=== PATIENT | male | born 1990 | race Caucasian/White ===

== ENCOUNTER 2019-03-11 21:51 | Observation (INO) ==
[2019-03-11 22:17] LABS: Basophils % 0.4 %; Eosinophils # 0.2 K/mcL (0.0-0.6); Eosinophils % 2.9 %; Hematocrit 39.2 % (37.5-50.1); Hemoglobin 13.9 g/dL (12.9-16.9); Immature Granulocytes % 0.1 % (0-4); Lymphocytes # 2.4 K/mcL (0.6-4.6); Lymphocytes % 34.9 %; Mean Corpuscular HGB Conc 35.5 g/dL (31.6-35.5); Mean Corpuscular Hemoglobin 28.7 pg (28.0-33.3); Mean Corpuscular Volume 80.8 fL (83.0-100.0); Mean Platelet Volume 8.4 fL (9.4-12.4); Monocytes # 0.4 K/mcL (0.0-1.3); Monocytes % 5.4 %; Neutrophils # 3.9 K/mcL (1.6-8.9); Platelet Count 380 K/mcL (140-400); Red Blood Count 4.85 M/mcL (4.19-5.50); Red Cell Distribution Width 13.6 % (11.5-14.5); Segmented Neutrophils % 56.3 %
[2019-03-11 22:18] LABS: White Blood Count 6.9 K/mcL (4.3-11.1)
[2019-03-11 22:24] LABS: Bilirubin,Urine Negative (Negative); Blood,Urine Negative (Negative); Clarity,Urine Cloudy (Clear); Color,Urine Yellow (Yellow); Glucose,Urine (UA) Normal (Normal); Ketones,Urine Negative (Negative); Leukocyte Esterase,Urine Negative (Negative); Nitrite,Urine Negative (Negative); PH,Urine 6.5 pH Units (5.0-8.0); Protein,Urine Negative (Neg-Trace); Specific Gravity,Urine 1.028 (1.010-1.025); Urobilinogen,Urine Normal (Normal)
[2019-03-11 22:27] LABS: Bacteria,Urine None Seen per hpf (None-Few); Hyaline Casts,Urine None Seen per lpf (None-Few); Squamous Epithelial Cell,Urine Few per lpf (None-Few); WBC,Urine 0-3 per hpf (0-3)
[2019-03-11 22:37] LABS: Acetaminophen < 10 mcg/mL (10-20); BUN/Creatinine Ratio 23 (6-26); Blood Urea Nitrogen 15 mg/dL (6-20); Calcium 9.4 mg/dL (8.6-10.3); Carbon Dioxide 25 mEq/L (23-29); Chloride 104 mEq/L (98-107); Ethanol < 10 mg/dL (Less than 10); Glucose 105 mg/dL (70-105); Osmolality,Calculated 285 (280-300); Potassium 3.5 mEq/L (3.5-5.1); Salicylate < 2.5 mg/dL (15.0-30.0); Sodium 137 mEq/L (136-145); eGFR For African Americans > 60 (> 60); eGFR For Non-African Americans > 60 (> 60)
[2019-03-11 22:58] LABS: Amphetamine Screen,Urine Positive ng/mL (Cutoff=1000); Barbiturate Screen,Urine Negative ng/mL (Cutoff=200); Benzodiazepines Screen,Urine Positive ng/mL (Cutoff=200); Cannabinoid Screen,Urine Positive ng/mL (Cutoff = 50); Cocaine Screen,Urine Positive ng/mL (Cutoff= 300); Opiate Screen,Urine Negative ng/mL (Cutoff=300); Phencyclidine Screen,Urine Negative ng/mL (Cutoff=25)
[2019-03-12] MEDS ORDERED: hydrOXYzine pamoate 25 MG CAPSULE PO PRN (01:08)
[2019-03-12] MEDS ORDERED: Mag Hydrox/Al Hydrox/Simeth 30 ML UDC PO PRN (01:08)
[2019-03-12] MEDS ORDERED: *HR* LORazepam 2 MG/ML VIAL IM PRN (01:08)
[2019-03-12] MEDS ORDERED: traZODone 50 MG TABLET PO PRN (01:08)
[2019-03-12] MEDS ORDERED: *HR* LORazepam 1 MG TABLET PO PRN (01:08)
[2019-03-12] MEDS ORDERED: Haloperidol Lactate 5 MG/ML VIAL IM PRN (01:08)
[2019-03-12] MEDS ORDERED: Acetaminophen 325 MG TABLET PO PRN (01:08)
[2019-03-12 01:23] VITALS: BP 116/75
[2019-03-12] MEDS ORDERED: Nicotine 21 MG PATCH.TD24 TD SCH (09:00)
[2019-03-12] MEDS ORDERED: METHADONE PO SCH (09:00)
== END 2019-03-12 10:40 | disposition home or self-care (01) ==
LOC: EMEROOARM 21:51 → INTOOBSV 03-12 01:04 → 1ANU 03-12 01:04
PROVIDERS: ADMIT Psychiatry & Neurology Psychiatry; ATTEND Psychiatry & Neurology Psychiatry

== ENCOUNTER 2019-07-05 17:19 | Observation (INO) ==
[2019-07-05] MEDS ORDERED: Tdap (Boostrix) Vaccine 0.5 ML SYRINGE IM ONE (17:32)
[2019-07-05 17:51] LABS: Bilirubin,Urine Small (Negative); Blood,Urine Negative (Negative); Clarity,Urine Clear (Clear); Color,Urine Dark Yellow (Yellow); Glucose,Urine (UA) Normal (Normal); Ketones,Urine Trace mg/dL (Negative); Leukocyte Esterase,Urine Negative (Negative); Nitrite,Urine Negative (Negative); PH,Urine 5.5 pH Units (5.0-8.0); Protein,Urine Negative (Neg-Trace); Specific Gravity,Urine 1.029 (1.010-1.025); Urobilinogen,Urine Normal (Normal)
[2019-07-05 18:00] LABS: Amphetamine Screen,Urine Positive ng/mL (Cutoff=1000); Barbiturate Screen,Urine Negative ng/mL (Cutoff=200); Benzodiazepines Screen,Urine Negative ng/mL (Cutoff=200); Cannabinoid Screen,Urine Positive ng/mL (Cutoff = 50); Cocaine Screen,Urine Negative ng/mL (Cutoff= 300); Opiate Screen,Urine Negative ng/mL (Cutoff=300); Phencyclidine Screen,Urine Negative ng/mL (Cutoff=25)
[2019-07-05 18:22] LABS: Basophils % 0.2 %; Eosinophils # 0.4 K/mcL (0.0-0.6); Eosinophils % 4.4 %; Hematocrit 41.5 % (37.5-50.1); Hemoglobin 13.7 g/dL (12.9-16.9); Immature Granulocytes % 0.2 % (0-4); Lymphocytes # 1.6 K/mcL (0.6-4.6); Lymphocytes % 16.8 %; Mean Corpuscular Hemoglobin 27.7 pg (28.0-33.3); Mean Platelet Volume 9.3 fL (9.4-12.4); Monocytes # 0.4 K/mcL (0.0-1.3); Monocytes % 4.2 %; Platelet Count 260 K/mcL (140-400); Red Blood Count 4.94 M/mcL (4.19-5.50); Red Cell Distribution Width 13.6 % (11.5-14.5); Segmented Neutrophils % 74.2 %; White Blood Count 9.4 K/mcL (4.3-11.1)
[2019-07-05 18:42] LABS: Acetaminophen < 10 mcg/mL (10-20); BUN/Creatinine Ratio 21 (6-26); Blood Urea Nitrogen 16 mg/dL (6-20); Calcium 9.9 mg/dL (8.6-10.3); Carbon Dioxide 25 mEq/L (23-29); Chloride 106 mEq/L (98-107); Ethanol < 10 mg/dL (Less than 10); Glucose 88 mg/dL (70-105); Osmolality,Calculated 289 (280-300); Potassium 3.9 mEq/L (3.5-5.1); Salicylate < 2.5 mg/dL (15.0-30.0); Sodium 139 mEq/L (136-145); eGFR For African Americans > 60 (> 60); eGFR For Non-African Americans > 60 (> 60)
[2019-07-05] MEDS ORDERED: Mag Hydrox/Al Hydrox/Simeth 30 ML UDC PO PRN (20:20)
[2019-07-05] MEDS ORDERED: *HR* LORazepam 2 MG/ML VIAL IM PRN (20:20)
[2019-07-05] MEDS ORDERED: *HR* LORazepam 1 MG TABLET PO PRN (20:20)
[2019-07-05] MEDS ORDERED: QUEtiapine Fumarate 25 MG TABLET PO PRN ×2 (20:20→21:00)
[2019-07-05] MEDS ORDERED: Acetaminophen 325 MG TABLET PO PRN (20:20)
[2019-07-05] MEDS ORDERED: MOM Conc 10 ML UD.LIQ PO PRN (20:20)
[2019-07-05] MEDS ORDERED: Haloperidol Lactate 5 MG/ML VIAL IM PRN (20:20)
[2019-07-05] MEDS ORDERED: haloperidoL 5 MG TABLET PO PRN (20:20)
[2019-07-05] MEDS ORDERED: hydrOXYzine pamoate 25 MG CAPSULE PO PRN (21:00)
[2019-07-06] MEDS ORDERED: Nicotine 21 MG PATCH.TD24 TD SCH (09:00)
[2019-07-06 09:39] VITALS: BP 100/52
== END 2019-07-06 09:42 | disposition home or self-care (01) ==
LOC: EMEROOARM 17:19 → 1ANU 17:19
PROVIDERS: ADMIT Psychiatry & Neurology Psychiatry; ATTEND Psychiatry & Neurology Psychiatry

== ENCOUNTER 2021-07-01 05:46 | Observation (INO) ==
[2021-07-01] MEDS ORDERED: Sulfamethoxazole/Trimeth DS 1 EACH TABLET PO ONE (06:36)
[2021-07-01 07:40] LABS: Bilirubin,Urine Negative (Negative); Blood,Urine Negative (Negative); Clarity,Urine Clear (Clear); Color,Urine Yellow (Yellow); Glucose,Urine (UA) Normal (Normal); Ketones,Urine 40 mg/dL (Negative); Leukocyte Esterase,Urine Negative (Negative); Mucus,Urine Many per lpf (None-Few); Nitrite,Urine Negative (Negative); Protein,Urine 50 mg/dL (Neg-Trace); RBC,Urine 0-3 per hpf (0-3); Specific Gravity,Urine > 1.030 (1.010-1.025); WBC,Urine 0-3 per hpf (0-3)
[2021-07-01 07:52] LABS: Amphetamine Screen,Urine Positive ng/mL (Cutoff=1000); Barbiturate Screen,Urine Negative ng/mL (Cutoff=200)
[2021-07-01 07:55] LABS: Benzodiazepines Screen,Urine Negative ng/mL (Cutoff=300); Cannabinoid Screen,Urine Positive ng/mL (Cutoff = 50); Cocaine Screen,Urine Negative ng/mL (Cutoff= 300); Opiate Screen,Urine Negative ng/mL (Cutoff=300); Phencyclidine Screen,Urine Negative ng/mL (Cutoff=25)
[2021-07-01 08:00] LABS: Basophils % 0.6 %; Eosinophils # 0.1 K/mcL (0.0-0.6); Eosinophils % 1.9 %; Hematocrit 44.5 % (37.5-50.1); Hemoglobin 15.2 g/dL (12.9-16.9); Lymphocytes # 3.1 K/mcL (0.6-4.6); Lymphocytes % 46.2 %; Mean Corpuscular HGB Conc 34.2 g/dL (31.6-35.5); Mean Corpuscular Hemoglobin 27.4 pg (28.0-33.3); Mean Corpuscular Volume 80.2 fL (83.0-100.0); Mean Platelet Volume 9.4 fL (9.4-12.4); Monocytes # 0.5 K/mcL (0.0-1.3); Monocytes % 6.7 %; Platelet Count 249 K/mcL (140-400); Red Blood Count 5.55 M/mcL (4.19-5.50); Red Cell Distribution Width 12.6 % (11.5-14.5); Segmented Neutrophils % 44.6 %; White Blood Count 6.7 K/mcL (4.3-11.1)
[2021-07-01 08:15] LABS: Acetaminophen < 10 mcg/mL (10-20); BUN/Creatinine Ratio 25 (6-26); Blood Urea Nitrogen 20 mg/dL (6-20); Calcium 9.8 mg/dL (8.6-10.3); Carbon Dioxide 25 mEq/L (23-29); Chloride 102 mEq/L (98-107); Ethanol < 10 mg/dL (Less than 10); Glucose 96 mg/dL (70-105); Osmolality,Calculated 284 (280-300); Potassium 3.4 mEq/L (3.5-5.1); Salicylate < 2.5 mg/dL (15.0-30.0); Sodium 136 mEq/L (136-145); eGFR For African Americans > 60 (> 60); eGFR For Non-African Americans > 60 (> 60)
[2021-07-01 09:14] LABS: Estimated Average Glucose 114 mg/dl; Hemoglobin A1C 5.6 %
[2021-07-01] MEDS ORDERED: *HR* LORazepam 2 MG/ML VIAL IM ONE ×2 (10:40→20:07)
[2021-07-01] MEDS ORDERED: Haloperidol Lactate 5 MG/ML VIAL IM ONE ×2 (10:40→20:07)
[2021-07-02] MEDS ORDERED: Ondansetron 4 MG/2 ML VIAL IVP PRN (01:07)
[2021-07-02] MEDS ORDERED: Naloxone 0.4 MG/ML INJ IVP PRN (01:07)
[2021-07-02 03:09] LABS: Hematocrit 43.2 % (37.5-50.1); Hemoglobin 14.8 g/dL (12.9-16.9); Mean Corpuscular HGB Conc 34.3 g/dL (31.6-35.5); Mean Corpuscular Hemoglobin 27.6 pg (28.0-33.3); Mean Corpuscular Volume 80.4 fL (83.0-100.0); Mean Platelet Volume 9.8 fL (9.4-12.4); Platelet Count 210 K/mcL (140-400); Red Blood Count 5.37 M/mcL (4.19-5.50); Red Cell Distribution Width 12.5 % (11.5-14.5); White Blood Count 6.7 K/mcL (4.3-11.1)
[2021-07-02] MEDS: 0.9 % Sodium Chloride 1,000 ML IVC SCH ×2 (03:23→14:47)
[2021-07-02 03:33] LABS: BUN/Creatinine Ratio 25 (6-26); Blood Urea Nitrogen 20 mg/dL (6-20); Calcium 9.4 mg/dL (8.6-10.3); Carbon Dioxide 25 mEq/L (23-29); Chloride 103 mEq/L (98-107); Chol/HDL Ratio 3.7 (0-4.9); Cholesterol 146 mg/dL (< 200); Glucose 86 mg/dL (70-105); HDL Cholesterol 39 mg/dL (40-59); LDL Cholesterol,Calculated 97 mg/dL (< 100); Magnesium 2.1 mg/dL (1.6-2.6); Osmolality,Calculated 286 (280-300); Potassium 3.3 mEq/L (3.5-5.1); Sodium 137 mEq/L (136-145); Triglycerides 50 mg/dL (< 150); Troponin I < 0.03 ng/mL (< 0.04); eGFR For African Americans > 60 (> 60); eGFR For Non-African Americans > 60 (> 60)
[2021-07-02] MEDS ORDERED: Haloperidol Lactate 5 MG/ML VIAL IM ONE (04:24)
[2021-07-02] MEDS ORDERED: *HR* LORazepam 2 MG/ML VIAL IM ONE (04:25)
[2021-07-02] MEDS: cefTRIAXone 1,000 MG in 0.9 % Sodium Chloride 10 ML IVP SCH ×2 (06:42→17:11)
[2021-07-02] MEDS ORDERED: Haloperidol Lactate 5 MG/ML VIAL IVP STA (09:22)
[2021-07-02] MEDS ORDERED: Haloperidol Lactate 5 MG/ML VIAL IVP PRN (10:11)
[2021-07-02] MEDS: Haloperidol Lactate 5 MG/ML VIAL IM PRN ×2 (14:47→21:12)
[2021-07-03 06:03] LABS: Hematocrit 40.2 % (37.5-50.1); Hemoglobin 13.5 g/dL (12.9-16.9); Mean Corpuscular HGB Conc 33.6 g/dL (31.6-35.5); Mean Corpuscular Hemoglobin 27.1 pg (28.0-33.3); Mean Corpuscular Volume 80.6 fL (83.0-100.0); Mean Platelet Volume 9.9 fL (9.4-12.4); Platelet Count 212 K/mcL (140-400); Red Blood Count 4.99 M/mcL (4.19-5.50); Red Cell Distribution Width 12.4 % (11.5-14.5); White Blood Count 6.8 K/mcL (4.3-11.1)
[2021-07-03 06:16] LABS: BUN/Creatinine Ratio 19 (6-26); Blood Urea Nitrogen 15 mg/dL (6-20); Carbon Dioxide 25 mEq/L (23-29); Chloride 106 mEq/L (98-107); Glucose 96 mg/dL (70-105); Osmolality,Calculated 287 (280-300); Potassium 3.4 mEq/L (3.5-5.1); Sodium 138 mEq/L (136-145); eGFR For African Americans > 60 (> 60); eGFR For Non-African Americans > 60 (> 60)
[2021-07-03] MEDS: cefTRIAXone 1,000 MG in 0.9 % Sodium Chloride 10 ML IVP SCH (06:35)
[2021-07-03 07:34] VITALS: TEMP 97.9
[2021-07-03 10:15] VITALS: BP 121/76; PULSE 57; O2SAT 97
[2021-07-03] MEDS: Haloperidol Lactate 5 MG/ML VIAL IM PRN (10:39)
[2021-07-03] MEDS ORDERED: Clindamycin 300 MG/50 ML 300 MG/50 ML IV.SOLN IVPB SCH (11:00)
[2021-07-03] MEDS ORDERED: Lactobacillus 1 EACH CAP.SPRINK PO SCH (11:15)
== END 2021-07-03 14:27 | disposition left against medical advice (07) ==
LOC: EMEROOARM 05:46 → 3ANU 05:46
PROVIDERS: ADMIT Student in an Organized Health Care Education/Training Program; ATTEND Student in an Organized Health Care Education/Training Program